=== PATIENT | male | born 1965 | race Hispanic/Latino ===

== ENCOUNTER 2019-10-16 11:21 | Inpatient (IN) | payer MEDICARE ==
[~2019-10-16] VITALS: Ht 180.3 cm; Wt 54.5 kg
[2019-10-16 12:24] LABS: BASOPHILS % (AUTO) 0.8 % (0.0-5.0); EOSINOPHILS % (AUTO) 1.9 % (0.0-8.0); HEMATOCRIT 33.2 % (42-54); LYMPHOCYTES % (AUTO) 18.2 % (21.0-51.0); MEAN CORPUSCULAR HEMOGLOBIN 30.5 pg (27.0-33.0); MEAN CORPUSCULAR HGB CONC 32.5 g/dL (32.0-36.0); MEAN CORPUSCULAR VOLUME 93.8 fL (79-99); MONOCYTES % (AUTO) 4.6 % (3.0-13.0); NEUTROPHILS % (AUTO) 74.5 % (40.0-77.0); PLATELET COUNT (AUTO) 97 K/uL (130-400); RED BLOOD CELL COUNT(AUTO) 3.54 MIL/uL (4.50-6.20); RED CELL DISTRIBUTION WIDTH 13.3 % (11.0-15.5); WHITE BLOOD COUNT (AUTO) 5.2 K/uL (4.8-10.8)
[2019-10-16 12:35] LABS: INR 0.92 (0.85-1.15); PARTIAL THROMBOPLASTIN TIME 31.7 SEC (26.3-35.5)
[2019-10-16 12:36] LABS: POTASSIUM 3.3 mmol/L (3.5-5.1)
[2019-10-16 12:43] LABS: ALBUMIN 2.8 g/dL (3.5-5.0); BILIRUBIN,TOTAL 0.4 mg/dL (0.2-1.0); TOTAL PROTEIN, SERUM 6.8 g/dL (6.0-8.3)
[2019-10-16] MEDS ORDERED: ACETAMINOPHEN 325 MG TAB PO PRN ×2 (12:45)
[2019-10-16] MEDS ORDERED: LACTULOSE 20 GM/30 ML UDCUP PO PRN (12:45)
[2019-10-16] MEDS ORDERED: ONDANSETRON HCL 4 MG/2 ML VIAL IV PRN (12:45)
[2019-10-16] MEDS: ZOSYN 3.375GM+NS 50ML 50 ML IV SCH ×2 (13:00→21:56)
[2019-10-16] MEDS ORDERED: POTASSIUM CHLORIDE 20 MEQ ERTAB PO SCH ×2 (14:35→16:30)
[2019-10-16] MEDS: INSULIN HUMULIN R 100 UNIT/ML 3ML SQ SCH ×3 (16:30→23:31)
[2019-10-16] MEDS ORDERED: POTASSIUM CHLORIDE 20 MEQ ERTAB PO ONE (16:57)
[2019-10-16] MEDS ORDERED: ZOSYN 3.375GM+NS 50ML 50 ML IV ONE (17:31)
[2019-10-16] MEDS ORDERED: HYDRALAZINE HCL 20 MG/ML VIAL ONE (18:49)
[2019-10-16] MEDS ORDERED: FAMOTIDINE 20MG TAB 20 MG TAB ONE (20:48)
[2019-10-16] MEDS ORDERED: FAMOTIDINE/PF 20 MG/2 ML VIAL IV ONE (20:54)
[2019-10-16] MEDS: FAMOTIDINE/PF 20 MG/2 ML VIAL IV SCH (21:00)
[2019-10-16 21:10] VITALS: BP 99/70
[2019-10-16] MEDS ORDERED: INSU10VI3 SQ (22:37)
[2019-10-16 23:34] VITALS: BP 145/93
[2019-10-17] VITALS (31 sets, daily range): BP systolic 77–172; BP diastolic 50–102
[2019-10-17 04:16] LABS: BASOPHILS % (AUTO) 0.7 % (0.0-5.0); EOSINOPHILS % (AUTO) 3.1 % (0.0-8.0); HEMATOCRIT 34.4 % (42-54); LYMPHOCYTES % (AUTO) 27.3 % (21.0-51.0); MEAN CORPUSCULAR HEMOGLOBIN 30.4 pg (27.0-33.0); MEAN CORPUSCULAR HGB CONC 32.6 g/dL (32.0-36.0); MEAN CORPUSCULAR VOLUME 93.5 fL (79-99); MONOCYTES % (AUTO) 4.8 % (3.0-13.0); NEUTROPHILS % (AUTO) 63.9 % (40.0-77.0); PLATELET COUNT (AUTO) 106 K/uL (130-400); RED BLOOD CELL COUNT(AUTO) 3.68 MIL/uL (4.50-6.20); RED CELL DISTRIBUTION WIDTH 13.4 % (11.0-15.5); WHITE BLOOD COUNT (AUTO) 4.1 K/uL (4.8-10.8)
[2019-10-17 04:24] LABS: POTASSIUM 3.4 mmol/L (3.5-5.1)
[2019-10-17] MEDS: ZOSYN 3.375GM+NS 50ML 50 ML IV SCH ×3 (04:44→20:34)
[2019-10-17 04:45] LABS: INR 0.92 (0.85-1.15); PARTIAL THROMBOPLASTIN TIME 31.8 SEC (26.3-35.5)
[2019-10-17] MEDS: INSULIN HUMULIN R 100 UNIT/ML 3ML SQ SCH ×4 (06:00→23:30)
[2019-10-17] MEDS ORDERED: LIDOCAINE PF 2% 5ML ABBOJECT ONE (14:58)
[2019-10-17] MEDS ORDERED: SUCCINYLCHOLINE CHLORIDE 20 MG/ML 10 ML VIAL ONE (14:58)
[2019-10-17] MEDS ORDERED: PROPOFOL 10 MG/ML 20ML VIAL IV ONE (14:59)
[2019-10-17] MEDS ORDERED: ROCURONIUM 10MG/1ML SYR 10 MG/ML ML ONE (15:00)
[2019-10-17] MEDS ORDERED: FENTANYL CITRATE PF 50 MCG/1 ML 2ML VIAL ONE (15:00)
--- NOTE | 2019-10-17 15:10 | NUR ---
INITIAL ASSESSMENT KARLY spoke with patient's daughter, Brian Alonzo. Patient lives alone. He has no home health but does have [facility] X [facility] hours but does not remember the name of the agency. Daughter, Laxmi Alonzo is provider. DME: [facility]. Dialysis: MWF at 5am at [facility]. Medical transportation takes him and brings him from dialysis. Patient is able to complete ADL's independently but does not drive. PCP is Dr. Smita Gonzalez. Pharmacy is [email or web address] located on [address] in [place]. DCP is home. Addendum: 10/17/19 at 1521 by MEE FLORES Amended: Links added.
[2019-10-17] MEDS ORDERED: CEFAZOLIN SODIUM 1 GM VIAL ONE (15:21)
[2019-10-17] MEDS ORDERED: TRAMADOL HCL 50 MG TABLET PO PRN ×2 (15:30)
[2019-10-17] MEDS ORDERED: VANCOMYCIN HCL 1 GM VIAL ONE (15:34)
[2019-10-17] MEDS ORDERED: EPHEDRINE SULFATE 50 MG/ML AMPULE ONE (15:37)
[2019-10-17] MEDS: FAMOTIDINE/PF 20 MG/2 ML VIAL IV SCH (20:33)
[2019-10-18] VITALS (7 sets, daily range): BP systolic 111–193; BP diastolic 58–108
[2019-10-18] MEDS ORDERED: VANCOMYCIN 1GM+NS 250ML 250 ML IV ONE (03:00)
[2019-10-18] MEDS: ZOSYN 3.375GM+NS 50ML 50 ML IV SCH ×2 (04:27→11:58)
[2019-10-18] MEDS: INSULIN HUMULIN R 100 UNIT/ML 3ML SQ SCH ×4 (05:54→20:18)
[2019-10-18 08:27] LABS: BASOPHILS % (AUTO) 0.7 % (0.0-5.0); EOSINOPHILS % (AUTO) 1.2 % (0.0-8.0); HEMATOCRIT 30.1 % (42-54); LYMPHOCYTES % (AUTO) 15.3 % (21.0-51.0); MEAN CORPUSCULAR HEMOGLOBIN 29.8 pg (27.0-33.0); MEAN CORPUSCULAR HGB CONC 30.2 g/dL (32.0-36.0); MEAN CORPUSCULAR VOLUME 98.7 fL (79-99); MONOCYTES % (AUTO) 4.8 % (3.0-13.0); NEUTROPHILS % (AUTO) 77.5 % (40.0-77.0); PLATELET COUNT (AUTO) 94 K/uL (130-400); RED BLOOD CELL COUNT(AUTO) 3.05 MIL/uL (4.50-6.20); RED CELL DISTRIBUTION WIDTH 14.7 % (11.0-15.5); WHITE BLOOD COUNT (AUTO) 4.2 K/uL (4.8-10.8)
[2019-10-18 09:33] LABS: ALBUMIN 2.6 g/dL (3.5-5.0); BILIRUBIN,TOTAL 0.4 mg/dL (0.2-1.0); CREATININE 5.4 mg/dL (0.5-1.5); POTASSIUM 3.3 mmol/L (3.5-5.1); TOTAL PROTEIN, SERUM 6.4 g/dL (6.0-8.3)
[2019-10-18] MEDS: FAMOTIDINE/PF 20 MG/2 ML VIAL IV SCH (19:37)
[2019-10-18] MEDS: HYDRALAZINE HCL 20 MG/ML VIAL IV PRN (19:38)
--- NOTE | 2019-10-18 20:15 | NUR ---
NURSE ROSS SPOKE WITH JOSIAS ORONA NURSE MADE AWARE OF PT HD SCHEDULE.STATED WILL CONTACT DR LYNCH IN A.M. TO OBTAIN ORDER FOR HD Addendum: 10/18/19 at 2233 by HERNAN JUSTICE RN RN Amended: Links added.
[2019-10-19] MEDS ORDERED: ZOSYN 3.375GM+NS 50ML 50 ML IV SCH (01:00)
[2019-10-19 03:05] VITALS: BP 137/74
[2019-10-19 04:19] LABS: MEAN CORPUSCULAR VOLUME 96.7 fL (79-99); RED CELL DISTRIBUTION WIDTH 14.4 % (11.0-15.5); WHITE BLOOD COUNT (AUTO) 4.3 K/uL (4.8-10.8)
[2019-10-19 04:40] LABS: ALBUMIN 2.6 g/dL (3.5-5.0); BILIRUBIN,TOTAL 0.4 mg/dL (0.2-1.0); CREATININE 5.6 mg/dL (0.5-1.5); POTASSIUM 4.2 mmol/L (3.5-5.1); TOTAL PROTEIN, SERUM 6.4 g/dL (6.0-8.3)
[2019-10-19] MEDS: INSULIN HUMULIN R 100 UNIT/ML 3ML SQ SCH ×4 (06:21→21:22)
[2019-10-19 07:59] VITALS: BP 141/91
--- NOTE | 2019-10-19 11:14 | NUR ---
RD NOTIFICATION Pt admitted with AV graft infection. ESRD on HD, Low weight status. [facility] Dialysis, 60gm CC diet order in place. BUN 43, Cr 5.6, GFR 11, BG 260, Ca 8.2, Alb 2.6. Attempt to call Pt, no answer. Pending callback from RN. Recommend Nepro BID between meals. Recommend continue current diet order. RD to continue to monitor. Please notify as additional nutrition concerns arise. Thank you. Addendum: 10/19/19 at [address] Amended: Links added.
[2019-10-19 11:34] VITALS: BP 174/104
[2019-10-19] MEDS ORDERED: COMPOUND IV REFRIGERATED 1 EACH IVSOLN MISC PRN (12:00)
--- NOTE | 2019-10-19 13:13 | NUR ---
plan of care discussed w kristian, director equipmentmd- dispo expected to be to home with continued ABX for avg infection- if IV, at HD clinic 3X week [facility] needed to clear prior to DC. Addendum: 10/19/19 at 1316 by BRANDON OVALLES RN Amended: Links added.
[2019-10-19] MEDS: NAFCILLIN 2GM+ NS 100ML 100 ML IV SCH (13:28)
--- NOTE | 2019-10-19 14:53 | NUR ---
DR. FARHAN REAL IN TO SEE PATIENT. ORDERS RECEIVED TO REMOVE SEBASTIAN DRAIN AND HAS CLEARED HIM FOR DISCHARGE ONCE PRIMARY MD IS READY. WILL NOTIFY HOSPITALIST GROUP.
[2019-10-19] MEDS ORDERED: VANCOMYCIN 750MG + NS 250 ML IV SCH ×2 (15:00)
[2019-10-19 16:34] VITALS: BP 169/96
[2019-10-19] MEDS ORDERED: VANCOMYCIN 1GM+NS 250ML 250 ML IV SCH (17:00)
[2019-10-19 19:50] VITALS: BP 171/98
[2019-10-19] MEDS: FAMOTIDINE/PF 20 MG/2 ML VIAL IV SCH (21:17)
[2019-10-19] MEDS ORDERED: LIDOCAINE HCL-MPF 1% 2ML VIAL IJ PRN (22:00)
[2019-10-19] MEDS ORDERED: SODIUM CHLORIDE 0.9% 1000ML 1,000 ML IV PRN (22:00)
[2019-10-19] MEDS ORDERED: 0.9% SODIUM CHLORIDE 1000 ML IV BAG IV PRN (22:00)
[2019-10-19] MEDS ORDERED: NITROGLYCERIN 0.4 MG SL TAB SL PRN (22:00)
[2019-10-19] MEDS ORDERED: ACETAMINOPHEN 325 MG TAB PO PRN (22:00)
[2019-10-19] MEDS ORDERED: HEPARIN SODIUM 5000UNIT/ML 1ML VIAL IJ PRN (22:00)
[2019-10-19 23:59] VITALS: BP 117/71
[2019-10-20] MEDS: NAFCILLIN 2GM+ NS 100ML 100 ML IV SCH ×3 (01:30→23:22)
[2019-10-20 03:55] VITALS: BP 149/93
[2019-10-20 03:59] LABS: BASOPHILS % (AUTO) 0.6 % (0.0-5.0); EOSINOPHILS % (AUTO) 3.6 % (0.0-8.0); HEMATOCRIT 27.5 % (42-54); LYMPHOCYTES % (AUTO) 13.9 % (21.0-51.0); MEAN CORPUSCULAR HEMOGLOBIN 30.1 pg (27.0-33.0); MEAN CORPUSCULAR VOLUME 94.2 fL (79-99); MONOCYTES % (AUTO) 5.5 % (3.0-13.0); NEUTROPHILS % (AUTO) 76.1 % (40.0-77.0); PLATELET COUNT (AUTO) 86 K/uL (130-400); RED BLOOD CELL COUNT(AUTO) 2.92 MIL/uL (4.50-6.20); WHITE BLOOD COUNT (AUTO) 3.6 K/uL (4.8-10.8)
[2019-10-20 04:16] LABS: CREATININE 3.4 mg/dL (0.5-1.5)
[2019-10-20] MEDS: INSULIN HUMULIN R 100 UNIT/ML 3ML SQ SCH ×4 (07:30→20:29)
[2019-10-20 08:10] VITALS: BP 183/106
[2019-10-20 11:04] VITALS: BP 141/97
[2019-10-20 16:23] VITALS: BP 176/107
[2019-10-20] MEDS: FAMOTIDINE/PF 20 MG/2 ML VIAL IV SCH (19:44)
[2019-10-20 20:00] VITALS: BP 144/88
[2019-10-20] MEDS: HYDRALAZINE HCL 20 MG/ML VIAL IV PRN (23:22)
[2019-10-21] VITALS: BP 181/99
[2019-10-21 04:00] VITALS: BP 153/87
[2019-10-21] MEDS: INSULIN HUMULIN R 100 UNIT/ML 3ML SQ SCH (05:36)
[2019-10-21 08:15] LABS: HEPATITIS A ANTIBODY IGM Negative (Negative); HEPATITIS B CORE IGM Negative (Negative); HEPATITIS Bs ANTIGEN SCREEN P Negative (Negative)
[2019-10-21 08:40] VITALS: BP 126/96
[2019-10-21] MEDS ORDERED: HEPARIN SODIUM 5000UNIT/ML 1ML VIAL IV PRN (10:15)
[2019-10-21 11:43] VITALS: BP 128/96
--- NOTE | 2019-10-21 12:00 | NUR ---
REFERRAL TO [facility]ENT AND ACCEPTED. DC PER EMS AFTER HD TODAY
[2019-10-21 17:05] VITALS: BP 138/100
== END 2019-10-21 18:45 | DRG 252 ==
LOC: EDH 11:21 → EDHIP 12:44 → 3AH 21:04
PROVIDERS: ADMIT Internal Medicine; ATTEND Internal Medicine
PROC: 03L80ZZ Occlusion of Left Brachial Artery, Open Approach (ICD-10-PCS; 2019-10-17)
PROC: 05LA0ZZ Occlusion of Left Brachial Vein, Open Approach (ICD-10-PCS; 2019-10-17)
PROC: 03PY0DZ Removal of Intraluminal Device from Upper Artery, Open Approach (ICD-10-PCS; principal; 2019-10-17 15:15)
PROC: 5A1D70Z Performance of Urinary Filtration, Intermittent, Less than 6 Hours Per Day (ICD-10-PCS; 2019-10-19)
PROC: 5A1D70Z Performance of Urinary Filtration, Intermittent, Less than 6 Hours Per Day (ICD-10-PCS; 2019-10-21)
DX: T82.7XXA Infection and inflammatory reaction due to other cardiac and vascular devices, implants and grafts, initial encounter (principal); N18.6 End stage renal disease; I12.0 Hypertensive chronic kidney disease with stage 5 chronic kidney disease or end stage renal disease; L03.114 Cellulitis of left upper limb; Y83.2 Surgical operation with anastomosis, bypass or graft as the cause of abnormal reaction of the patient, or of later complication, without mention of misadventure at the time of the procedure; Z99.2 Dependence on renal dialysis; E11.22 Type 2 diabetes mellitus with diabetic chronic kidney disease; D64.9 Anemia, unspecified; E87.6 Hypokalemia; I72.1 Aneurysm of artery of upper extremity; B95.61 Methicillin susceptible Staphylococcus aureus infection as the cause of diseases classified elsewhere; I25.10 Atherosclerotic heart disease of native coronary artery without angina pectoris; Z83.3 Family history of diabetes mellitus; T82.898A Other specified complication of vascular prosthetic devices, implants and grafts, initial encounter
CPT/HCPCS: 36415; 71045; 80048; 80053; 80074; 80202; 82948; 83735; 85025; 85027; 85610; 85730; 86850; 86900; 86901; 87070; 87076; 87077; 87116; 87186; 87205; 87206; 88300; 90935; 93971; 97039; G0378; J0330; J0360; J0690; J1644; J1815; J2001; J2543; J2704; J3010; J3370; J3490; J7050; J7120

== ENCOUNTER → 2019-12-17 | Outpatient (CLI) | payer MEDICARE ==
[~2019-12-17] MED LIST: INSU10VI3 SQ
== END | disposition home or self-care (01) ==
LOC: RAH 08:28
PROVIDERS: ATTEND Thoracic Surgery (Cardiothoracic Vascular Surgery)
DX: N18.6 End stage renal disease (principal); Z99.2 Dependence on renal dialysis; T82.598A Other mechanical complication of other cardiac and vascular devices and implants, initial encounter
CPT/HCPCS: 93990

== ENCOUNTER 2019-12-22 07:27 | Observation (INO) | payer MEDICARE ==
[~2019-12-22] VITALS: Ht 172.7 cm; Wt 58.3 kg
[2019-12-22] VITALS (21 sets, daily range): BP systolic 110–165; BP diastolic 65–99
[2019-12-22] MEDS ORDERED: CEFUROXIME SODIUM 1.5 GM VIAL ONE (08:21)
[2019-12-22] MEDS ORDERED: SODIUM CHLORIDE 0.9% 500ML 500 ML IV ONE (08:22)
[2019-12-22] MEDS ORDERED: CEFUROXIME SODIUM 1.5 GM VIAL IVP SCH (08:45)
[2019-12-22] MEDS ORDERED: CEFAZOLIN SODIUM 1 GM VIAL ONE (08:52)
[2019-12-22] MEDS ORDERED: VANCOMYCIN 1GM+NS 250ML 250 ML IV ONE (08:52)
[2019-12-22 08:54] LABS: BASOPHILS % (AUTO) 1.2 % (0.0-5.0); EOSINOPHILS % (AUTO) 7.7 % (0.0-8.0); HEMATOCRIT 29.5 % (42-54); LYMPHOCYTES % (AUTO) 25.2 % (21.0-51.0); MEAN CORPUSCULAR HEMOGLOBIN 31.6 pg (27.0-33.0); MEAN CORPUSCULAR HGB CONC 33.2 g/dL (32.0-36.0); MEAN CORPUSCULAR VOLUME 95.2 fL (79-99); MONOCYTES % (AUTO) 3.7 % (3.0-13.0); PLATELET COUNT (AUTO) 128 K/uL (130-400); RED CELL DISTRIBUTION WIDTH 14.5 % (11.0-15.5)
--- NOTE | 2019-12-22 09:00 | NUR ---
preop pt arrived via w/c in no distress. pt has very dry skin to bilat lower legs, pt has diaper on d/t stool incontinence, pt has old nonfxn graft to left arm. pt orientd to room and call light. will continue to monitor pt.
[2019-12-22] MEDS ORDERED: INSULIN HUMULIN R 100 UNIT/ML 3ML ONE (09:05)
[2019-12-22 09:07] LABS: HEMOGLOBIN A1C 10.5 % (4.0-6.0)
[2019-12-22 09:12] LABS: INR 0.95 (0.85-1.15); PARTIAL THROMBOPLASTIN TIME 30.1 SEC (26.3-35.5); PROTHROMBIN TIME 10.3 SEC (9.6-11.6)
[2019-12-22] MEDS ORDERED: LIDOCAINE 1%-EPI 1:100,000 20 ML VIAL IJ ONE (09:21)
[2019-12-22] MEDS ORDERED: ROPIVACAINE 0.5% 5MG/ML 30ML IJ ONE (09:21)
[2019-12-22] MEDS ORDERED: MIDAZOLAM HCL 1 MG/ML 2ML VIAL ONE (09:21)
[2019-12-22] MEDS ORDERED: FENTANYL CITRATE PF 50 MCG/1 ML 2ML VIAL ONE ×2 (09:22→12:11)
[2019-12-22] MEDS ORDERED: DEXAMETHASONE SOD PHOSPHATE 10MG/ML 1ML VIAL ONE (09:22)
[2019-12-22 09:34] LABS: ALBUMIN 3.1 g/dL (3.5-5.0); BILIRUBIN,TOTAL 0.4 mg/dL (0.2-1.0); CREATININE 3.9 mg/dL (0.5-1.5); POTASSIUM 4.1 mmol/L (3.5-5.1); TOTAL PROTEIN, SERUM 7.2 g/dL (6.0-8.3)
--- NOTE | 2019-12-22 10:03 | NUR ---
report received call from lab on glucose critical of 527. repeat at 0954 was 416. no new orders at this time. pt asymptomatic and was given regular insulin 10 units after blood drawn. will continue to monitor pt.
--- NOTE | 2019-12-22 10:03 | NUR ---
report jamie morfin online services manager informed of labs. no new orders at this time
[2019-12-22] MEDS ORDERED: PROPOFOL 1000 MG/100 ML 100 ML IV ONE (11:36)
[2019-12-22] MEDS ORDERED: EPHEDRINE SULFATE 50 MG/ML AMPULE ONE (12:31)
[2019-12-22] MEDS ORDERED: SODIUM CHLORIDE 0.9% 10 ML VIAL ONE (12:32)
[2019-12-22] MEDS ORDERED: OCTYL 2-CYANOACRYLATE 1 EACH TP ONE (12:37)
[2019-12-22] MEDS ORDERED: PROTAMINE SULFATE 10 MG/ML 25ML VIAL IV ONE (13:18)
--- NOTE | 2019-12-22 15:30 | NUR ---
GAVE REPORT TO CARMELA VARGAS .
--- NOTE | 2019-12-22 15:40 | NUR ---
called Grecia Peralta about the patient being sent home via transportation ride, patient did mentioned he does not have any at home to stay with me, at this point patient had a block to right arm and is wheelchair bound with no assistance at home, patient at high risk for bleeding or fall and I verbalized my concerns with Doctor Randy/Grecia Peralta, new orders to have patient adm to the floor for observation.
--- NOTE | 2019-12-22 16:00 | NUR ---
Pt awake, alert, and oriented. Appears comfortable without any signs of distress. Denies any pain, nausea, or dizziness. Pt reports that right arm remains numb from block, however fingers show signs of good circulation. Dressing clean dry, and intact. Renal diet provided. Pt has no complaints at this time.
--- NOTE | 2019-12-22 17:15 | NUR ---
[facility] called and message left with answering service that pt was being admitted to their group for observation.
--- NOTE | 2019-12-22 19:00 | NUR ---
PT taken to room 408. Report called prior to taking pt upstairs. Pt situated in room and comfort measures provided. Pt awake , alert, and oriented at the time of transport. Pt denies any pain, nausea or dizziness. Dressing to right arm remains clean, dry, and intact. Further report given to MANAV Dykes.
--- NOTE | 2019-12-22 19:25 | NUR ---
PAGED AWNING HANGER SUPERVISOR Taliad S bronson cain
--- NOTE | 2019-12-22 19:30 | NUR ---
MINERVA BELLO HYDRO PNEUMATIC TESTER,called back,gave new order.
[2019-12-22] MEDS ORDERED: LACTULOSE 20 GM/30 ML UDCUP PO PRN (19:45)
[2019-12-22] MEDS ORDERED: ONDANSETRON HCL 4 MG/2 ML VIAL IV PRN (19:45)
[2019-12-22] MEDS ORDERED: MAG HYDROX/AL HYDROX/SIMETH ES 30 ML SUSP UDCUP PO PRN (19:45)
[2019-12-22] MEDS ORDERED: ACETAMINOPHEN 325 MG TAB PO PRN ×2 (19:45)
--- NOTE | 2019-12-22 19:50 | NUR ---
CONSULT Pagenacho sexton and informed him re consult and pt,s bulmaro rosenthal.
--- NOTE | 2019-12-22 19:54 | NUR ---
DIALYSIS Spoke to JOSIAS from dialysis,informed re dialysis in am.
[2019-12-22] MEDS: INSULIN HUMULIN 70/30 100 UNIT/ML 3ML SQ SCH (20:39)
--- NOTE | 2019-12-22 20:43 | NUR ---
BLOOD GLUCOSE Pts blood sugar>600,due insulin and sliding scale given.Annie Agarwal Hanging Flags Decorator. Pt refusing Iv access,he signed refusal form.He states if he does not get dialysed early he's walking out of here.
[2019-12-22] MEDS ORDERED: INSULIN HUMULIN R 100 UNIT/ML 3ML SQ STA (20:48)
--- NOTE | 2019-12-22 20:51 | NUR ---
CALL BACK S bronson cain called back,notified of blood sugar readings,see new order.
[2019-12-22] MEDS ORDERED: INSULIN HUMULIN R 100 UNIT/ML 3ML SQ SCH (21:00)
--- NOTE | 2019-12-22 21:40 | NUR ---
INSULIN Regular insulin 10 units given.
--- NOTE | 2019-12-22 23:13 | NUR ---
BLOOD SUGAR Glucometer still >600.Ordered random glucose,covered with sliding scale insulin.
[2019-12-22] MEDS: INSULIN HUMULIN R 100 UNIT/ML 3ML SQ SCH (23:24)
--- NOTE | 2019-12-22 23:38 | NUR ---
BLOOD SUGAR Pts blood sugar remains >600,he refused lab to draw a venous sample.He's awake,alert,oriented.He's upset that we have to do this all night.He said he's just here to have his arm checked.He agreed to have an Iv inserted.TaliadS Tomasz nonprofit manager re blood sugar "HIGH" on POC.
--- NOTE | 2019-12-22 23:41 | NUR ---
COVID PCR As per lab,pt is pending Covid PCR,pt refused to have sample taken.
--- NOTE | 2019-12-23 00:22 | NUR ---
NO CALL BACK No call back from BASEBALL PITCHER,Pt awake,alert.Will cont to observe.
--- NOTE | 2019-12-23 02:13 | NUR ---
STATUS Pt sleeping,eyes closed.Skin warm to touch.No signs of hypo/hyperglycemia noted.
[2019-12-23 04:20] VITALS: BP 137/89
[2019-12-23] MEDS: INSULIN HUMULIN R 100 UNIT/ML 3ML SQ SCH ×3 (04:50→12:00)
--- NOTE | 2019-12-23 05:09 | NUR ---
CALM Pt calm,his blood sugar now at 277.Covered with regular insulin sliding scale #2.
[2019-12-23] MEDS ORDERED: LIDOCAINE HCL-MPF 1% 2ML VIAL IJ PRN (07:30)
[2019-12-23] MEDS ORDERED: SODIUM CHLORIDE 0.9% 1000ML 1,000 ML IV PRN (07:30)
[2019-12-23] MEDS ORDERED: HEPARIN SODIUM 5000UNIT/ML 1ML VIAL IJ PRN ×2 (07:30)
[2019-12-23] MEDS ORDERED: 0.9% SODIUM CHLORIDE 1000 ML IV BAG IV PRN (07:30)
[2019-12-23] MEDS ORDERED: ACETAMINOPHEN 325 MG TAB PO PRN (07:30)
[2019-12-23] MEDS ORDERED: PHARMACY COMMUNICATION MISC PRN (07:30)
[2019-12-23] MEDS ORDERED: NITROGLYCERIN 0.4 MG SL TAB SL PRN (07:30)
[2019-12-23 07:47] VITALS: BP 114/73
[2019-12-23] MEDS: INSULIN HUMULIN 70/30 100 UNIT/ML 3ML SQ SCH (09:00)
--- NOTE | 2019-12-23 11:19 | NUR ---
EFRAIN DEL CASTILLO Spoke to patient via phone. As per patient, he lives alone at address listed on file, and has a provider through [facility] to help him with his ADLs. He is unsure on the amount of hours he receives per week for the provider benefit. Patient states he is currently wheelchair-bound, but does have a cane and walker available to him . No other DME or services reported. He states "the transport company" is to transport him upon discharge. CM to follow up. Addendum: 12/23/19 at 1128 by DENISHA MOON Amended: Links added.
[2019-12-23] MEDS ORDERED: DEXTROSE 50%-WATER 50 ML DISP.SYRIN IV ONE (11:43)
[2019-12-23 11:46] VITALS: BP 171/103
[2019-12-23] MEDS ORDERED: GLUCAGON 1MG KIT 1 MG ML IM PRN (12:00)
[2019-12-23] MEDS ORDERED: DEXTROSE 50%-WATER 50 ML DISP.SYRIN IV PRN (12:00)
[2019-12-23 16:00] VITALS: BP 178/100
--- NOTE | 2019-12-23 17:02 | NUR ---
RD NOTIFICATION Pt admitted with hyperglycemia. History of ESRD,CAD, HTN, DM. Pt tolerating Ren[facility] Dialysis diet order with no report of GI distress. Good PO intake at 75-100%. Pt LBM 12/23/19. Pt with contact isolation protocol. Nutrition education placed in Pt chart. Pending RD nutrition education via phone. Pt s/p R-Arm AV Fistula creation. Monitored labs: BG >600 on admission, 63 at time of screen, A1C 10.5, Cr 3.9, GFR 17, BUN 33. RD to follow up with Nutrition Education reinforcement Recommend continue current diet order.
== END 2019-12-23 12:43 | disposition home or self-care (01) ==
LOC: DAH 07:27 → DAHIP 07:28 → UNDOADMOB 07:28 → DAHIP 15:30 → 4BH 19:00
PROVIDERS: ADMIT Internal Medicine Pulmonary Disease; ATTEND Internal Medicine Pulmonary Disease
DX: I12.0 Hypertensive chronic kidney disease with stage 5 chronic kidney disease or end stage renal disease (principal); N18.6 End stage renal disease; E11.22 Type 2 diabetes mellitus with diabetic chronic kidney disease; E11.51 Type 2 diabetes mellitus with diabetic peripheral angiopathy without gangrene; E11.65 Type 2 diabetes mellitus with hyperglycemia; E11.649 Type 2 diabetes mellitus with hypoglycemia without coma; D64.9 Anemia, unspecified; I25.10 Atherosclerotic heart disease of native coronary artery without angina pectoris; Z79.4 Long term (current) use of insulin; Z99.2 Dependence on renal dialysis
CPT/HCPCS: 36415; 36821; 71045; 80053; 82947; 82948 ×13; 83036; 85025; 85610; 85730; 87426; 93005; 96374; A4215; A4221; A4222; A4223 ×3; A4452; A4606; A4649; A4663; A4930; A6207; C1713 ×2; G0168; G0378 ×10; J0690; J1100; J1644 ×2; J1815 ×6; J2250; J2704; J2720; J2795; J3010 ×2; J3370; J3490 ×2; J7030; J7040; J7070; 90935; J0697

== ENCOUNTER 2020-02-04 07:11 | Day surgery (SDC) | payer MEDICARE ==
[2020-02-04] VITALS (14 sets, daily range): BP systolic 91–188; BP diastolic 58–99
[2020-02-04] MEDS: CEFAZOLIN SODIUM 1 GM VIAL IVP SCH ×2 (06:00→14:09)
[2020-02-04 09:12] LABS: BASOPHILS % (AUTO) 1.4 % (0.0-5.0); EOSINOPHILS % (AUTO) 3.7 % (0.0-8.0); HEMATOCRIT 38.3 % (42-54); LYMPHOCYTES % (AUTO) 22.4 % (21.0-51.0); MEAN CORPUSCULAR HEMOGLOBIN 30.7 pg (27.0-33.0); MEAN CORPUSCULAR HGB CONC 32.6 g/dL (32.0-36.0); MEAN CORPUSCULAR VOLUME 94.1 fL (79-99); MONOCYTES % (AUTO) 4.4 % (3.0-13.0); NEUTROPHILS % (AUTO) 67.8 % (40.0-77.0); PLATELET COUNT (AUTO) 103 K/uL (130-400); RED BLOOD CELL COUNT(AUTO) 4.07 MIL/uL (4.50-6.20); RED CELL DISTRIBUTION WIDTH 14.5 % (11.0-15.5); WHITE BLOOD COUNT (AUTO) 2.9 K/uL (4.8-10.8)
[2020-02-04 09:25] LABS: CREATININE 4.4 mg/dL (0.5-1.5); POTASSIUM 3.5 mmol/L (3.5-5.1)
[2020-02-04 09:29] LABS: ALBUMIN 3.2 g/dL (3.5-5.0); BILIRUBIN,TOTAL 0.5 mg/dL (0.2-1.0); TOTAL PROTEIN, SERUM 7.6 g/dL (6.0-8.3)
[2020-02-04 09:34] LABS: INR 0.96 (0.85-1.15); PARTIAL THROMBOPLASTIN TIME 30.6 SEC (26.3-35.5); PROTHROMBIN TIME 10.4 SEC (9.6-11.6)
[2020-02-04 10:29] LABS: EOSINOPHILS % (MANUAL) 3 % (1-6); LYMPHOCYTES % (MANUAL) 24 % (22-44); MAN.DIFF COMMENT-IMPRESSION MANUAL DIFFERENTIAL; MONOCYTES % (MANUAL) 2 % (2-9); PLATELET MORPHOLOGY COMMENT SLIGHTLY DECREASED; SEGMENTED NEUTROPHILS % 71 % (40-70)
[2020-02-04] MEDS ORDERED: INSULIN HUMULIN R 100 UNIT/ML 3ML ONE (10:57)
[2020-02-04] MEDS ORDERED: SODIUM CHLORIDE 0.9% 500ML 500 ML IV ONE (11:07)
[2020-02-04] MEDS ORDERED: INSULIN HUMULIN R 100 UNIT/ML 3ML SQ SCH (12:00)
[2020-02-04] MEDS ORDERED: LIDOCAINE PF 2% 5ML ABBOJECT ONE (12:23)
[2020-02-04] MEDS ORDERED: FENTANYL CITRATE PF 50 MCG/1 ML 2ML VIAL ONE (12:24)
[2020-02-04] MEDS ORDERED: ROCURONIUM 10MG/1ML SYR 10 MG/ML ML ONE (12:24)
[2020-02-04] MEDS ORDERED: PROPOFOL 10 MG/ML 20ML VIAL IV ONE (12:24)
[2020-02-04] MEDS ORDERED: MIDAZOLAM HCL 1 MG/ML 2ML VIAL ONE (12:39)
[2020-02-04] MEDS ORDERED: ROPIVACAINE 0.5% 5MG/ML 30ML IJ ONE (13:08)
[2020-02-04] MEDS ORDERED: LIDOCAINE HCL 2% 20ML ONE (13:08)
[2020-02-04] MEDS ORDERED: PROTAMINE SULFATE 10 MG/ML 5 ML VIAL ONE (15:27)
[2020-02-04] MEDS ORDERED: HEPARIN SODIUM 1000UNIT/ML 10ML VIAL ONE (15:27)
[2020-02-04] MEDS ORDERED: PROTAMINE SULFATE 10 MG/ML 25ML VIAL IV ONE (15:27)
[2020-02-04] MEDS ORDERED: PHENYLEPHRINE HCL 10 MG/ML 1ML VIAL IV ONE (15:43)
--- NOTE | 2020-02-04 16:30 | NUR ---
day pt arrival Pt in no distress alert and oriented times 3. Dressing to right lower arm is clean and dry. Bruit auscultated and thrill present lightly. Distal radial pulse felt strong and cap refill less than 2 sec.
--- NOTE | 2020-02-04 17:30 | NUR ---
day pt dc Pt taken to to transport [facility] alert and oriented times3 with no signs of distress, nausea or vomting. Dressing to right lower arm is clean and dry. Bruit auscultated and thrill present lightly. Distal radial pulse felt strong and cap refill less than 2 sec.
== END 2020-02-04 17:30 | disposition home or self-care (01) ==
LOC: DAH 07:11
PROVIDERS: ATTEND Thoracic Surgery (Cardiothoracic Vascular Surgery)
DX: E11.22 Type 2 diabetes mellitus with diabetic chronic kidney disease (principal); N18.6 End stage renal disease; Z20.828 Contact with and (suspected) exposure to other viral communicable diseases; J44.9 Chronic obstructive pulmonary disease, unspecified; Z99.2 Dependence on renal dialysis; Z91.81 History of falling; Z98.890 Other specified postprocedural states; Z79.01 Long term (current) use of anticoagulants; Z79.4 Long term (current) use of insulin; Z79.899 Other long term (current) drug therapy
CPT/HCPCS: 36415; 36825; 64417; 64418; 71045; 76942; 80053; 82948 ×4; 85025; 85610; 85730; 86850; 86900; 86901; 87426; 93005; A4215 ×2; A4221; A4222; A4223; A4452; A4649; A4663; A6207; A6446; C1713 ×2; C1768; G0168; J0690; J1644 ×2; J1815; J2001; J2250; J2370; J2704; J2720; J2795; J3490; J7030; J7040; U0003; J3010